=== PATIENT | male | born 1940 | race Caucasian/White ===

== ENCOUNTER → 2016-08-02 | Outpatient (REF) | payer MEDICARE ==
[~2016-08-02] MED LIST: ALPR0.25 PO; ASPI81TA11 PO; ATEN25TA PO; BAYE325T12 PO; CRES10TA32 PO; CYAN1000VL IM; IBUP200C PO; LISI-538 PO; NITR4TASL SL; OMEP40CA2 PO; PLAV75TA38 PO; RANI150T PO; TAMS0.4C2 PO
[2016-08-02 12:43] LABS: BASO % 0.8 % (0.0-1.0); EOS # 0.4 K/mm3 (0.0-0.50); EOS % 6.5 % (0.0-3.0); LARGE UNSTAINED CELL # 0.1 K/mm3 (0.0-0.4); LARGE UNSTAINED CELL % 2.3 % (0.0-4.0); LYMPH # 1.4 K/mm3 (1.5-4.5); LYMPH % 25.8 % (24.0-44.0); MEAN CORPUSCULAR HEMOGLOBIN 30.5 pg (27.0-33.0); MEAN CORPUSCULAR VOLUME 89.7 fl (80.0-96.0); MONO # 0.4 K/mm3 (0.0-0.8); MONO % 6.9 % (0.0-5.0); NEUTROPHILS # 3.1 K/mm3 (1.8-7.7); NEUTROPHILS % 57.6 % (36.0-66.0); PLATELET COUNT, AUTOMATED 211 k/mm3 (150-450); RED CELL DISTRIBUTION WIDTH 13.7 % (11.5-14.5); WHITE BLOOD COUNT 5.4 K/mm3 (4.0-10.0)
[2016-08-02 12:55] LABS: VITAMIN B12 LEVEL 440 PG/ML (247-911)
[2016-08-02 13:27] LABS: ALBUMIN 3.7 GM/DL (3.2-5.2); ALBUMIN/GLOBULIN RATIO 1.16 (1.00-1.93); ALKALINE PHOSPHATASE 67 U/L (45-117); ALT/SGPT 19 U/L (12-78); ANION GAP 8 MEQ/L (8-16); AST/SGOT 17 U/L (15-37); BILIRUBIN,TOTAL 0.3 MG/DL (0.2-1.0); BLOOD UREA NITROGEN 19 MG/DL (7-18); CALCIUM LEVEL 8.7 MG/DL (8.8-10.2); CARBON DIOXIDE LEVEL 29 MEQ/L (21-32); CHLORIDE LEVEL 105 MEQ/L (98-107); CHOLESTEROL LEVEL 139 MG/DL (<200); CREATININE FOR GFR 1.06 MG/DL (0.70-1.30); GLOMERULAR FILTRATION RATE > 60.0 (>42); GLUCOSE, FASTING 117 MG/DL (83-110); POTASSIUM SERUM 4.5 MEQ/L (3.5-5.1); SODIUM LEVEL 142 MEQ/L (136-145); TOTAL PROTEIN 6.9 GM/DL (6.4-8.2); TRIGLYCERIDES LEVEL 159 MG/DL (<150)
[2016-08-03 14:16] LABS: PSA TOTAL 0.5 ng/mL (0.0-4.0)
== END ==
LOC: M LABDRAW1 11:58
PROVIDERS: ATTEND Nurse Practitioner Family
DX: I25.10 Atherosclerotic heart disease of native coronary artery without angina pectoris (principal); N40.0 Benign prostatic hyperplasia without lower urinary tract symptoms; D51.9 Vitamin B12 deficiency anemia, unspecified; E78.4 Other hyperlipidemia; I10 Essential (primary) hypertension

== ENCOUNTER → 2016-10-17 | Outpatient (REF) | payer MEDICARE ==
[~2016-10-17] MED LIST changes: +ASPI-101 PO; -ASPI81TA11 PO; +ESOM1CAP5; +FLOM5CAP; +FLUT1SPR2; -IBUP200C PO; +IBUP200C10 PO; +ISOS30TA4; +PLAV1TAB2 PO; -PLAV75TA38 PO; +PROAAER10; +ROSU40TA
== END ==
LOC: M LABDRAW1 17:40
PROVIDERS: ATTEND Nurse Practitioner Family
DX: I25.10 Atherosclerotic heart disease of native coronary artery without angina pectoris (principal)

== ENCOUNTER → 2016-10-23 | Outpatient (REF) | payer MEDICARE ==
[2016-10-23 12:04] LABS: ANION GAP 7 MEQ/L (8-16); BLOOD UREA NITROGEN 21 MG/DL (7-18); CARBON DIOXIDE LEVEL 28 MEQ/L (21-32); CHLORIDE LEVEL 106 MEQ/L (98-107); CREATININE FOR GFR 1.14 MG/DL (0.70-1.30); GLOMERULAR FILTRATION RATE > 60.0 (>42); GLUCOSE, FASTING 177 MG/DL (83-110); SODIUM LEVEL 141 MEQ/L (136-145)
== END ==
LOC: M LABDRAW1 11:24
PROVIDERS: ATTEND Nurse Practitioner Family
DX: I10 Essential (primary) hypertension (principal)

== ENCOUNTER 2016-11-05 00:11 | Emergency (ER) | payer MEDICARE ==
[~2016-11-05] VITALS: Ht 165.1 cm; Wt 64.2 kg
[~2016-11-05 00:11] MED LIST changes: -ESOM1CAP5; -FLOM5CAP; -FLUT1SPR2; -ISOS30TA4; -PROAAER10; -ROSU40TA
[2016-11-05] MEDS ORDERED: FLUT1SPR2 (00:31)
[2016-11-05] MEDS ORDERED: ROSU40TA (00:31)
[2016-11-05] MEDS ORDERED: PROAAER10 (00:31)
[2016-11-05] MEDS ORDERED: FLOM5CAP (00:31)
[2016-11-05] MEDS ORDERED: ESOM1CAP5 (00:31)
[2016-11-05] MEDS ORDERED: ISOS30TA4 (00:31)
[2016-11-05] MEDS ORDERED: ASPIRIN 81 MG CHEW TABLET PO ONE (00:45)
[2016-11-05 00:58] LABS: BASO # 0.1 K/mm3 (0.0-0.2); BASO % 0.9 % (0.0-1.0); EOS # 0.3 K/mm3 (0.0-0.50); LARGE UNSTAINED CELL # 0.1 K/mm3 (0.0-0.4); LARGE UNSTAINED CELL % 2.1 % (0.0-4.0); LYMPH # 2.1 K/mm3 (1.5-4.5); LYMPH % 28.8 % (24.0-44.0); MEAN CORPUSCULAR HEMOGLOBIN 29.3 pg (27.0-33.0); MEAN CORPUSCULAR HGB CONC 33.7 g/dl (32.0-36.5); MEAN CORPUSCULAR VOLUME 87.1 fl (80.0-96.0); MONO # 0.5 K/mm3 (0.0-0.8); MONO % 7.6 % (0.0-5.0); NEUTROPHILS # 3.8 K/mm3 (1.8-7.7); NEUTROPHILS % 55.5 % (36.0-66.0); PLATELET COUNT, AUTOMATED 188 k/mm3 (150-450); RED CELL DISTRIBUTION WIDTH 13.2 % (11.5-14.5); WHITE BLOOD COUNT 6.8 K/mm3 (4.0-10.0)
[2016-11-05 01:07] LABS: ALBUMIN 3.6 GM/DL (3.2-5.2); ALBUMIN/GLOBULIN RATIO 0.97 (1.00-1.93); ALKALINE PHOSPHATASE 77 U/L (45-117); ALT/SGPT 24 U/L (12-78); ANION GAP 5 MEQ/L (8-16); AST/SGOT 15 U/L (15-37); BILIRUBIN,DIRECT < 0.1 MG/DL (0.0-0.2); BILIRUBIN,TOTAL 0.2 MG/DL (0.2-1.0); BLOOD UREA NITROGEN 19 MG/DL (7-18); CALCIUM LEVEL 8.8 MG/DL (8.8-10.2); CARBON DIOXIDE LEVEL 29 MEQ/L (21-32); CHLORIDE LEVEL 106 MEQ/L (98-107); CREATININE FOR GFR 1.12 MG/DL (0.70-1.30); GLOMERULAR FILTRATION RATE > 60.0 (>42); GLUCOSE, FASTING 144 MG/DL (83-110); POTASSIUM SERUM 4.1 MEQ/L (3.5-5.1); SODIUM LEVEL 140 MEQ/L (136-145); TOTAL PROTEIN 7.3 GM/DL (6.4-8.2)
--- NOTE | 2016-11-05 06:14 | ECGEPIP ---
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
[2016-11-05] MEDS ORDERED: FAMOTIDINE 20 MG TAB PO ONE (07:45)
[2016-11-05] MEDS ORDERED: HEPARIN SOD (PORCINE) 5000 UNITS/ML VIAL IV ONE (08:00)
[2016-11-05] MEDS ORDERED: CLOPIDOGREL 300 MG TAB (PLAVIX) PO ONE (08:00)
[2016-11-05] MEDS ORDERED: HEPARIN DRIP 25,000 UNITS in APPROPRIATE DILUENT 1 EA IV SCH (08:00)
[2016-11-05 08:18] LABS: INR 0.98
[2016-11-05] MEDS ORDERED: NITROGLYCERIN 0.4 MG SUBL TABLET SL PRN (08:30)
[2016-11-05 08:37] VITALS: BP 177/90
[2016-11-05] MEDS ORDERED: NITROGLYCERIN 2% OINT 1 GM *U/D* PKT TOP ONE (08:45)
[2016-11-05 08:57] VITALS: BP 155/73
--- NOTE | 2016-11-05 09:12 | REP ---
Portable chest: 11/05/2016. Comparison 10/17/2016, 07/07/2011, CT chest 10/26/2016. Clinical history: Chest pain. There is some elevation right diaphragm as before. Bilateral pleural plaques are noted as on previous chest x-ray and CT. Heart has a somewhat left ventricular configuration. There is no vascular redistribution or edema. The aorta is calcified at the arch, minimally tortuous without aneurysm. Airway intact. Bones demineralized. Impression: 1. Elevated right diaphragm with some minor basilar atelectatic change and bilateral calcified pleural plaques from prior asbestos exposure. 2. No gross cardiomegaly or edema. No dense consolidation. Signed by Clifford Jason MD 11/05/2016 09:15 P
--- NOTE | 2016-11-05 18:19 | ECGEPIP ---
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
--- NOTE | 2016-11-05 18:20 | ECGEPIP ---
Stationary ECG Study 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
--- NOTE | 2016-11-06 07:43 | ED PDOC ---
Post-Departure Follow-Up radiology report faxed to Negrita Mejia MD Nov 06, 2016 07:43
== END 2016-11-05 09:05 | disposition short-term general hospital (02) ==
LOC: EDBD 00:11 → M ED 00:11
DX: I20.0 Unstable angina (principal); I25.10 Atherosclerotic heart disease of native coronary artery without angina pectoris; I10 Essential (primary) hypertension; E78.5 Hyperlipidemia, unspecified; Z95.5 Presence of coronary angioplasty implant and graft; Z77.090 Contact with and (suspected) exposure to asbestos; Z79.82 Long term (current) use of aspirin; Z79.899 Other long term (current) drug therapy

== ENCOUNTER → 2017-11-18 | Outpatient (REF) | payer MEDICARE ==
[2017-11-18 12:02] LABS: BASO # 0.1 10^3/uL (0.0-0.2); BASO % 0.9 % (0.0-1.0); EOS # 0.4 10^3/uL (0.0-0.50); EOS % 6.8 % (0.0-3.0); HEMOGLOBIN 14.1 g/dl (13.5-17.5); IMMATURE GRANULOCYTE % 0.4 % (0-3.0); LYMPH # 1.6 10^3/uL (1.5-4.5); MEAN CORPUSCULAR HEMOGLOBIN 29.6 pg (27.0-33.0); MEAN CORPUSCULAR HGB CONC 33.6 g/dl (32.0-36.5); MEAN CORPUSCULAR VOLUME 88.2 fl (80.0-96.0); MONO # 0.5 10^3/uL (0.0-0.8); MONO % 9.2 % (0.0-5.0); NEUTROPHILS # 2.9 10^3/uL (1.8-7.7); NEUTROPHILS % 53.7 % (36.0-66.0); PLATELET COUNT, AUTOMATED 194 10^3/uL (150-450); RED BLOOD COUNT 4.76 10^6/uL (4.30-6.10); RED CELL DISTRIBUTION WIDTH 12.8 % (11.5-14.5); WHITE BLOOD COUNT 5.4 10^3/uL (4.0-10.0)
[2017-11-18 12:31] LABS: ALBUMIN 3.7 GM/DL (3.2-5.2); ALBUMIN/GLOBULIN RATIO 1.16 (1.00-1.93); ALKALINE PHOSPHATASE 73 U/L (45-117); ALT/SGPT 23 U/L (12-78); ANION GAP 6 MEQ/L (8-16); AST/SGOT 16 U/L (7-37); BILIRUBIN,TOTAL 0.3 MG/DL (0.2-1.0); BLOOD UREA NITROGEN 15 MG/DL (7-18); CARBON DIOXIDE LEVEL 31 MEQ/L (21-32); CHLORIDE LEVEL 106 MEQ/L (98-107); CHOLESTEROL LEVEL 121 MG/DL (<200); CHOLESTEROL RISK RATIO 3.361 (<5); CREATININE FOR GFR 1.13 MG/DL (0.70-1.30); GLOMERULAR FILTRATION RATE > 60.0 (>42); GLUCOSE, FASTING 112 MG/DL (70-100); HDL CHOLESTEROL 36 MG/DL (>40); LDL CHOLESTEROL 67.6 MG/DL (<100); NON-HDL-C 85 MG/DL; SODIUM LEVEL 143 MEQ/L (136-145); TOTAL PROTEIN 6.9 GM/DL (6.4-8.2); TRIGLYCERIDES LEVEL 87 MG/DL (<150)
[2017-11-19 14:28] LABS: PSA TOTAL 0.7 ng/mL (0.0-4.0)
== END ==
LOC: M LABDRAW1 07:50
DX: K21.9 Gastro-esophageal reflux disease without esophagitis (principal); N40.0 Benign prostatic hyperplasia without lower urinary tract symptoms; I10 Essential (primary) hypertension
CPT/HCPCS: 80053

== ENCOUNTER → 2018-08-13 | Outpatient (REF) | payer MEDICARE ==
[~2018-08-13] MED LIST changes: -ASPI-101 PO; +ASPI-225 PO; +CRES10TA PO; -CRES10TA32 PO; +ESOM1CAP5; +FLOM0.4C39; +FLUT1SPR2; -IBUP200C10 PO; +IBUP200C25 PO; +ISOS30TA4; +PROAAER10; +ROSU40TA3
[2018-08-13 12:14] LABS: HEMATOCRIT 40.2 % (42.0-52.0); HEMOGLOBIN 13.5 g/dl (13.5-17.5); MEAN CORPUSCULAR HEMOGLOBIN 29.5 pg (27.0-33.0); MEAN CORPUSCULAR HGB CONC 33.6 g/dl (32.0-36.5); MEAN CORPUSCULAR VOLUME 87.8 fl (80.0-96.0); PLATELET COUNT, AUTOMATED 210 10^3/uL (150-450); RED BLOOD COUNT 4.58 10^6/uL (4.30-6.10); WHITE BLOOD COUNT 6.4 10^3/uL (4.0-10.0)
[2018-08-13 12:35] LABS: BLOOD UREA NITROGEN 18 MG/DL (7-18); CALCIUM LEVEL 9.1 MG/DL (8.8-10.2); CARBON DIOXIDE LEVEL 31 MEQ/L (21-32); CHLORIDE LEVEL 105 MEQ/L (98-107); CREATININE FOR GFR 1.17 MG/DL (0.70-1.30); GLOMERULAR FILTRATION RATE > 60.0 (>42); GLUCOSE, FASTING 121 MG/DL (70-100); POTASSIUM SERUM 4.1 MEQ/L (3.5-5.1); SODIUM LEVEL 139 MEQ/L (136-145)
== END ==
LOC: M LABDRAW1 11:46
PROVIDERS: ATTEND Physician Assistant
DX: I95.89 Other hypotension (principal)

== ENCOUNTER 2018-10-02 10:12 | Emergency (ER) | payer MEDICARE ==
[~2018-10-02] VITALS: Ht 167.6 cm; Wt 59.1 kg
[~2018-10-02 10:12] MED LIST changes: -ROSU40TA3; +ROSU40TA4 PO
[2018-10-02] MEDS ORDERED: CLOP75TA2 (10:20)
[2018-10-02 10:45] LABS: BASO % 0.4 % (0.0-1.0); EOS # 0.1 10^3/uL (0.0-0.50); EOS % 2.4 % (0.0-3.0); HEMATOCRIT 43.2 % (42.0-52.0); HEMOGLOBIN 14.7 g/dl (13.5-17.5); LYMPH # 1.3 10^3/uL (1.5-4.5); LYMPH % 25.9 % (24.0-44.0); MEAN CORPUSCULAR HEMOGLOBIN 30.4 pg (27.0-33.0); MEAN CORPUSCULAR VOLUME 89.3 fl (80.0-96.0); MONO # 0.4 10^3/uL (0.0-0.8); MONO % 8.8 % (0.0-5.0); NEUTROPHILS # 3.1 10^3/uL (1.8-7.7); NEUTROPHILS % 62.3 % (36.0-66.0); PLATELET COUNT, AUTOMATED 190 10^3/uL (150-450); RED BLOOD COUNT 4.84 10^6/uL (4.30-6.10)
[2018-10-02 10:54] LABS: INR 1.06; PROTHROMBIN TIME 13.5 SECONDS (11.8-14.0)
--- NOTE | 2018-10-02 11:04 | REP ---
Clinical: Acute chest pain. Comparison: 11/05/2016. Findings: Mediastinum and cardiac silhouette are normal. Lung david demonstrate coarsened interstitial markings which are likely chronic. No obvious focal consolidation, effusion, or pneumothorax. Skeletal structures intact. Impression: Chronic-appearing changes. No obvious focal consolidation or effusion. Electronically Signed by Randall Randall MD 10/02/2018 10:55 A
[2018-10-02] MEDS ORDERED: ENAL2.5T PO (11:23)
[2018-10-02] MEDS ORDERED: TERA10CA3 PO (11:23)
[2018-10-02 11:24] LABS: ALBUMIN 3.5 GM/DL (3.2-5.2); ALT/SGPT 23 U/L (12-78); BILIRUBIN,DIRECT 0.1 MG/DL (0.0-0.2); BILIRUBIN,TOTAL 0.3 MG/DL (0.2-1.0); BLOOD UREA NITROGEN 19 MG/DL (7-18); CALCIUM LEVEL 8.4 MG/DL (8.8-10.2); CARBON DIOXIDE LEVEL 28 MEQ/L (21-32); CHLORIDE LEVEL 107 MEQ/L (98-107); CK-MB VALUE MASS < 1.0 NG/ML (<3.6); CPK CREATINE PHOSPHOKINASE 61 U/L (39-308); CREATININE FOR GFR 1.07 MG/DL (0.70-1.30); GLOMERULAR FILTRATION RATE > 60.0 (>42); GLUCOSE, FASTING 144 MG/DL (70-100); LIPASE 76 U/L (73-393); MB/CK RELATIVE INDEX 1.64 (< OR =4); NT-PRO BNP < 5 PG/ML (<450); POTASSIUM SERUM 4.2 MEQ/L (3.5-5.1); SODIUM LEVEL 140 MEQ/L (136-145); THYROID STIMULATING HORMONE 0.612 uIU/ML (0.358-3.740); TOTAL PROTEIN 7.2 GM/DL (6.4-8.2); TROPONIN I < 0.02 NG/ML (< 0.10)
[2018-10-02 13:09] LABS: CK-MB VALUE MASS < 1.0 NG/ML (<3.6); CPK CREATINE PHOSPHOKINASE 67 U/L (39-308); MB/CK RELATIVE INDEX 1.49 (< OR =4); TROPONIN I < 0.02 NG/ML (< 0.10)
[2018-10-02 17:45] LABS: CK-MB VALUE MASS 1.1 NG/ML (<3.6); CPK CREATINE PHOSPHOKINASE 61 U/L (39-308); TROPONIN I < 0.02 NG/ML (< 0.10)
[2018-10-02 18:15] VITALS: BP 151/75
--- NOTE | 2018-10-02 20:09 | ECGEPIP ---
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
== END 2018-10-02 18:15 | disposition home or self-care (01) ==
LOC: M ED 10:12
DX: R07.9 Chest pain, unspecified (principal); R06.02 Shortness of breath; I10 Essential (primary) hypertension; J44.9 Chronic obstructive pulmonary disease, unspecified; E78.5 Hyperlipidemia, unspecified; I25.2 Old myocardial infarction; Z79.899 Other long term (current) drug therapy; Z79.82 Long term (current) use of aspirin; Z79.01 Long term (current) use of anticoagulants; Z88.5 Allergy status to narcotic agent; Z88.8 Allergy status to other drugs, medicaments and biological substances; Z87.891 Personal history of nicotine dependence

== ENCOUNTER → 2019-09-23 | Outpatient (REF) | payer BC ==
[~2019-09-23] MED LIST changes: -ASPI-225 PO; +ASPI81TA78 PO; +CLOP75TA2; +ENAL2.5T PO; -OMEP40CA2 PO; +OMEP40CA97 PO; +TERA10CA3 PO
[2019-09-23 13:12] LABS: BASO % 0.5 % (0.0-1.0); EOS # 0.3 10^3/uL (0.0-0.5); EOS % 3.6 % (0.0-3.0); HEMATOCRIT 39.1 % (42.0-52.0); HEMOGLOBIN 13.1 g/dl (13.5-17.5); LYMPH # 1.7 10^3/uL (1.5-5.0); LYMPH % 20.8 % (24.0-44.0); MEAN CORPUSCULAR HEMOGLOBIN 29.7 pg (27.0-33.0); MEAN CORPUSCULAR HGB CONC 33.5 g/dl (32.0-36.5); MEAN CORPUSCULAR VOLUME 88.7 fl (80.0-96.0); MONO # 0.7 10^3/uL (0.0-0.8); MONO % 8.1 % (0.0-5.0); NEUTROPHILS # 5.3 10^3/uL (1.5-8.5); NEUTROPHILS % 66.6 % (36.0-66.0); PLATELET COUNT, AUTOMATED 297 10^3/uL (150-450); RED BLOOD COUNT 4.41 10^6/uL (4.30-6.10)
[2019-09-23 13:34] LABS: HEMOGLOBIN A1c 6.8 %
[2019-09-23 13:59] LABS: ALBUMIN 3.4 GM/DL (3.2-5.2); ALT/SGPT 22 U/L (12-78); BILIRUBIN,TOTAL 0.4 MG/DL (0.2-1.0); BLOOD UREA NITROGEN 20 MG/DL (7-18); CALCIUM LEVEL 9.1 MG/DL (8.8-10.2); CARBON DIOXIDE LEVEL 27 MEQ/L (21-32); CHLORIDE LEVEL 104 MEQ/L (98-107); CHOLESTEROL LEVEL 118 MG/DL (<200); CHOLESTEROL RISK RATIO 3.687 (<5); CREATININE FOR GFR 1.14 MG/DL (0.70-1.30); GLOMERULAR FILTRATION RATE > 60.0 (>42); GLUCOSE, FASTING 116 MG/DL (70-100); HDL CHOLESTEROL 32 MG/DL (>40); LDL CHOLESTEROL 69 MG/DL (<100); NON-HDL-C 86 MG/DL; POTASSIUM SERUM 4.7 MEQ/L (3.5-5.1); SODIUM LEVEL 138 MEQ/L (136-145); THYROID STIMULATING HORMONE 0.346 uIU/ML (0.358-3.740); TOTAL PROTEIN 7.3 GM/DL (6.4-8.2); TRIGLYCERIDES LEVEL 85 MG/DL (<150)
== END ==
LOC: M SFHCADAM 09:06
PROVIDERS: ATTEND Physician Assistant Medical
DX: E78.2 Mixed hyperlipidemia (principal); K21.9 Gastro-esophageal reflux disease without esophagitis; I50.32 Chronic diastolic (congestive) heart failure; I71.4 Abdominal aortic aneurysm, without rupture; I65.23 Occlusion and stenosis of bilateral carotid arteries; N40.0 Benign prostatic hyperplasia without lower urinary tract symptoms
CPT/HCPCS: 80053; 80061; 83036; 84443; 85025; G0103

== ENCOUNTER → 2021-01-30 | Outpatient (REF) | payer BC, MEDICARE ==
[~2021-01-30] MED LIST changes: +ENAL1TAB46 PO; -ENAL2.5T PO; +ISOS1TAB35; -ISOS30TA4; -LISI-538 PO; +LISI20TA33 PO; +OMEP40CA4 PO; -OMEP40CA97 PO
[2021-01-30 12:39] LABS: BASO % 0.3 % (0.0-1.0); EOS # 0.1 10^3/uL (0.0-0.5); EOS % 1.5 % (0.0-3.0); HEMATOCRIT 39.5 % (42.0-52.0); HEMOGLOBIN 12.7 g/dl (13.5-17.5); LYMPH # 1.3 10^3/uL (1.5-5.0); LYMPH % 17.5 % (24.0-44.0); MEAN CORPUSCULAR HEMOGLOBIN 28.1 pg (27.0-33.0); MEAN CORPUSCULAR HGB CONC 32.2 g/dl (32.0-36.5); MEAN CORPUSCULAR VOLUME 87.4 fl (80.0-96.0); MONO # 0.7 10^3/uL (0.0-0.8); MONO % 9.4 % (2.0-8.0); NEUTROPHILS # 5.1 10^3/uL (1.5-8.5); PLATELET COUNT, AUTOMATED 320 10^3/uL (150-450); RED BLOOD COUNT 4.52 10^6/uL (4.30-6.10); WHITE BLOOD COUNT 7.2 10^3/uL (4.0-10.0)
[2021-01-30 14:18] LABS: ALBUMIN 3.2 GM/DL (3.2-5.2); ALT/SGPT 15 U/L (12-78); BILIRUBIN,TOTAL 0.3 MG/DL (0.2-1.0); BLOOD UREA NITROGEN 18 MG/DL (7-18); CALCIUM LEVEL 9.4 MG/DL (8.8-10.2); CARBON DIOXIDE LEVEL 29 MEQ/L (21-32); CHLORIDE LEVEL 104 MEQ/L (98-107); CREATININE FOR GFR 0.85 MG/DL (0.70-1.30); FERRITIN 166 NG/ML (26-388); FREE T4 1.36 NG/DL (0.76-1.46); GLOMERULAR FILTRATION RATE > 60.0 (>35); GLUCOSE, FASTING 97 MG/DL (70-100); IRON (FE) 45 UG/DL (65-175); MAGNESIUM LEVEL 2.3 MG/DL (1.8-2.4); PERCENT SATURATION 17.8 % (19.7-50.0); POTASSIUM SERUM 4.7 MEQ/L (3.5-5.1); SODIUM LEVEL 139 MEQ/L (136-145); THYROID STIMULATING HORMONE 0.269 uIU/ML (0.358-3.740); TOTAL IRON BINDING CAPACITY 253 UG/DL (250-450); TOTAL PROTEIN 7.5 GM/DL (6.4-8.2)
[2021-01-30 14:32] LABS: VITAMIN B12 LEVEL 514 PG/ML
== END ==
LOC: M SFHCADAM 10:22
PROVIDERS: ATTEND Physician Assistant Medical
DX: I25.10 Atherosclerotic heart disease of native coronary artery without angina pectoris (principal); E78.2 Mixed hyperlipidemia; K21.9 Gastro-esophageal reflux disease without esophagitis; I50.32 Chronic diastolic (congestive) heart failure

== ENCOUNTER → 2021-08-09 | Outpatient (REF) | payer BC, MEDICARE ==
[2021-08-09 17:04] LABS: HEMATOCRIT 37.2 % (42.0-52.0); HEMOGLOBIN 11.7 g/dl (13.5-17.5); MEAN CORPUSCULAR HEMOGLOBIN 28.5 pg (27.0-33.0); MEAN CORPUSCULAR HGB CONC 31.5 g/dl (32.0-36.5); MEAN CORPUSCULAR VOLUME 90.7 fl (80.0-96.0); PLATELET COUNT, AUTOMATED 286 10^3/uL (150-450); WHITE BLOOD COUNT 6.1 10^3/uL (4.0-10.0)
[2021-08-09 20:17] LABS: ALBUMIN 3.2 GM/DL (3.2-5.2); ALT/SGPT 17 U/L (12-78); BILIRUBIN,TOTAL 0.2 MG/DL (0.2-1.0); BLOOD UREA NITROGEN 17 MG/DL (7-18); C REACTIVE PROTEIN QUANTITATIV 0.71 MG/DL (0.00-0.30); CALCIUM LEVEL 9.5 MG/DL (8.8-10.2); CARBON DIOXIDE LEVEL 32 MEQ/L (21-32); CHLORIDE LEVEL 104 MEQ/L (98-107); CHOLESTEROL LEVEL 129 MG/DL (<200); CHOLESTEROL RISK RATIO 3.146 (<5); CREATININE FOR GFR 0.74 MG/DL (0.70-1.30); GLOMERULAR FILTRATION RATE > 60.0 (>35); GLUCOSE, FASTING 162 MG/DL (70-100); HDL CHOLESTEROL 41 MG/DL (>40); LDL CHOLESTEROL 69 MG/DL (<100); NON-HDL-C 88 MG/DL; NT-PRO BNP 11 PG/ML (<450); POTASSIUM SERUM 4.5 MEQ/L (3.5-5.1); SODIUM LEVEL 139 MEQ/L (136-145); THYROID STIMULATING HORMONE 0.689 uIU/ML (0.358-3.740); TOTAL PROTEIN 7.3 GM/DL (6.4-8.2); TRIGLYCERIDES LEVEL 95 MG/DL (<150)
[2021-08-11 08:22] LABS: ALBUMIN 3.53 GM/DL (3.29-5.55); ALBUMIN % 48.3 % (55.8-66.1); ALPHA-1-GLOBULIN % 5.1 % (2.9-4.9); ALPHA-1-GLOBULINS 0.37 GM/DL (0.17-0.41); ALPHA-2-GLOBULINS 1.08 GM/DL (0.42-0.99); ALPHA-2-GLOBULINS % 14.8 % (7.1-11.8); BETA-1-GLOBULINS 0.42 GM/DL (0.28-0.60); BETA-1-GLOBULINS % 5.8 % (4.7-7.2); BETA-2-GLOBULINS % 6.2 % (3.2-6.5); GAMMA GLOBULIN % 19.8 % (11.1-18.8)
[2021-08-11 08:23] LABS: BETA-2-GLOBULINS 0.45 GM/DL (0.19-0.55); GAMMA GLOBULINS 1.45 GM/DL (0.65-1.58)
[2021-08-11 18:09] LABS: FREE KAPPA LIGHT CHAINS SERUM 49.9 mg/L (3.3-19.4); FREE LAMBDA LIGHT CHAINS SERUM 26.7 mg/L (5.7-26.3); KAPPA/LAMBDA RATIO SERUM 1.87 (0.26-1.65)
== END ==
LOC: M SFHCADAM 14:57
PROVIDERS: ATTEND Family Medicine
DX: R63.4 Abnormal weight loss (principal); E53.8 Deficiency of other specified B group vitamins; I25.10 Atherosclerotic heart disease of native coronary artery without angina pectoris; F41.9 Anxiety disorder, unspecified; I50.32 Chronic diastolic (congestive) heart failure; S22.009A Unspecified fracture of unspecified thoracic vertebra, initial encounter for closed fracture; R97.20 Elevated prostate specific antigen [PSA]; W18.30XA Fall on same level, unspecified, initial encounter; Y92.009 Unspecified place in unspecified non-institutional (private) residence as the place of occurrence of the external cause

== ENCOUNTER → 2021-08-09 | Outpatient (CLI) | payer BC, MEDICARE | LOC: M ADAMS 15:03 | PROVIDERS: ATTEND Family Medicine | DX: R63.4 Abnormal weight loss (principal); S22.009A Unspecified fracture of unspecified thoracic vertebra, initial encounter for closed fracture; J90 Pleural effusion, not elsewhere classified; X58.XXXA Exposure to other specified factors, initial encounter; Y92.9 Unspecified place or not applicable; M85.88 Other specified disorders of bone density and structure, other site ==

== ENCOUNTER → 2021-08-31 | Outpatient (REF) | payer MEDICARE ==
[2021-08-31 12:56] LABS: HEMATOCRIT 39.4 % (42.0-52.0); HEMOGLOBIN 12.5 g/dl (13.5-17.5); MEAN CORPUSCULAR HEMOGLOBIN 28.4 pg (27.0-33.0); MEAN CORPUSCULAR HGB CONC 31.7 g/dl (32.0-36.5); MEAN CORPUSCULAR VOLUME 89.5 fl (80.0-96.0); PLATELET COUNT, AUTOMATED 276 10^3/uL (150-450)
[2021-08-31 13:26] LABS: ALBUMIN 3.3 GM/DL (3.2-5.2); ALT/SGPT 14 U/L (12-78); BILIRUBIN,TOTAL 0.3 MG/DL (0.2-1.0); BLOOD UREA NITROGEN 19 MG/DL (7-18); CARBON DIOXIDE LEVEL 32 MEQ/L (21-32); CHLORIDE LEVEL 104 MEQ/L (98-107); CREATININE FOR GFR 0.83 MG/DL (0.70-1.30); FERRITIN 158 NG/ML (26-388); GLOMERULAR FILTRATION RATE > 60.0 (>35); GLUCOSE, FASTING 119 MG/DL (70-100); IRON (FE) 46 UG/DL (65-175); PERCENT SATURATION 18.9 % (19.7-50.0); POTASSIUM SERUM 4.3 MEQ/L (3.5-5.1); SODIUM LEVEL 141 MEQ/L (136-145); TOTAL IRON BINDING CAPACITY 244 UG/DL (250-450); TOTAL PROTEIN 7.7 GM/DL (6.4-8.2)
== END ==
LOC: M SFHCADAM 08:08
PROVIDERS: ATTEND Family Medicine
DX: D64.9 Anemia, unspecified (principal); I50.32 Chronic diastolic (congestive) heart failure

== ENCOUNTER → 2021-09-05 | Outpatient (CLI) | payer MEDICARE ==
[~2021-09-05] MED LIST changes: +ISOVUE-370 76% 100ML VIAL As Ordered ONE
== END ==
LOC: M RAD 08:33
PROVIDERS: ATTEND Family Medicine
DX: J90 Pleural effusion, not elsewhere classified (principal); J94.8 Other specified pleural conditions; J98.11 Atelectasis; J84.10 Pulmonary fibrosis, unspecified
CPT/HCPCS: 71260; Q9967

== ENCOUNTER → 2021-10-04 | Outpatient (REF) | payer MEDICARE ==
[~2021-10-04] MED LIST changes: -ISOVUE-370 76% 100ML VIAL As Ordered ONE
[2021-10-04 16:40] LABS: HEMOGLOBIN 12.9 g/dl (13.5-17.5); MEAN CORPUSCULAR HEMOGLOBIN 28.9 pg (27.0-33.0); MEAN CORPUSCULAR HGB CONC 32.3 g/dl (32.0-36.5); MEAN CORPUSCULAR VOLUME 89.5 fl (80.0-96.0); PLATELET COUNT, AUTOMATED 268 10^3/uL (150-450); RED BLOOD COUNT 4.47 10^6/uL (4.30-6.10); WHITE BLOOD COUNT 6.6 10^3/uL (4.0-10.0)
[2021-10-04 17:09] LABS: BLOOD UREA NITROGEN 16 MG/DL (7-18); CALCIUM LEVEL 9.1 MG/DL (8.8-10.2); CARBON DIOXIDE LEVEL 33 MEQ/L (21-32); CHLORIDE LEVEL 102 MEQ/L (98-107); CREATININE FOR GFR 0.91 MG/DL (0.70-1.30); GLOMERULAR FILTRATION RATE > 60.0 (>35); GLUCOSE, FASTING 96 MG/DL (70-100); POTASSIUM SERUM 4.9 MEQ/L (3.5-5.1); SODIUM LEVEL 139 MEQ/L (136-145)
== END ==
LOC: M SFHCADAM 13:52
PROVIDERS: ATTEND Family Medicine
DX: I50.32 Chronic diastolic (congestive) heart failure (principal); D63.8 Anemia in other chronic diseases classified elsewhere

== ENCOUNTER → 2022-01-02 | Outpatient (REF) | payer MEDICARE ==
[2022-01-02 13:34] LABS: HEMATOCRIT 39.2 % (42.0-52.0); HEMOGLOBIN 12.2 g/dl (13.5-17.5); MEAN CORPUSCULAR HEMOGLOBIN 27.9 pg (27.0-33.0); MEAN CORPUSCULAR HGB CONC 31.1 g/dl (32.0-36.5); MEAN CORPUSCULAR VOLUME 89.5 fl (80.0-96.0); PLATELET COUNT, AUTOMATED 282 10^3/uL (150-450); RED BLOOD COUNT 4.38 10^6/uL (4.30-6.10); WHITE BLOOD COUNT 7.3 10^3/uL (4.0-10.0)
[2022-01-02 13:49] LABS: ALBUMIN 3.2 GM/DL (3.2-5.2); ALT/SGPT 18 U/L (12-78); BILIRUBIN,TOTAL 0.3 MG/DL (0.2-1.0); BLOOD UREA NITROGEN 18 MG/DL (7-18); CALCIUM LEVEL 9.7 MG/DL (8.8-10.2); CARBON DIOXIDE LEVEL 33 MEQ/L (21-32); CHLORIDE LEVEL 104 MEQ/L (98-107); CREATININE FOR GFR 0.93 MG/DL (0.70-1.30); FERRITIN 129 NG/ML (26-388); GLOMERULAR FILTRATION RATE > 60.0 (>35); GLUCOSE, FASTING 120 MG/DL (70-100); IRON (FE) 49 UG/DL (65-175); PERCENT SATURATION 19.5 % (19.7-50.0); POTASSIUM SERUM 4.4 MEQ/L (3.5-5.1); SODIUM LEVEL 141 MEQ/L (136-145); TOTAL IRON BINDING CAPACITY 251 UG/DL (250-450); TOTAL PROTEIN 7.6 GM/DL (6.4-8.2)
== END ==
LOC: M SFHCADAM 07:49
PROVIDERS: ATTEND Family Medicine
DX: I50.32 Chronic diastolic (congestive) heart failure (principal); D63.8 Anemia in other chronic diseases classified elsewhere

== ENCOUNTER → 2022-08-08 | Outpatient (CLI) | payer MEDICARE ==
[~2022-08-08] MED LIST changes: +CLOP75TA99 PO; -PLAV1TAB2 PO
== END ==
LOC: M PLAIMG 08:11
PROVIDERS: ATTEND Internal Medicine Cardiovascular Disease
DX: R06.09 Other forms of dyspnea (principal); J84.89 Other specified interstitial pulmonary diseases; J94.8 Other specified pleural conditions; I70.0 Atherosclerosis of aorta; M51.34 Other intervertebral disc degeneration, thoracic region

== ENCOUNTER → 2022-09-05 | Outpatient (REF) | payer MEDICARE ==
[2022-09-05 14:45] LABS: HEMATOCRIT 40.9 % (42.0-52.0); HEMOGLOBIN 12.4 g/dl (13.5-17.5); MEAN CORPUSCULAR HEMOGLOBIN 27.4 pg (27.0-33.0); MEAN CORPUSCULAR HGB CONC 30.3 g/dl (32.0-36.5); MEAN CORPUSCULAR VOLUME 90.5 fl (80.0-96.0); PLATELET COUNT, AUTOMATED 256 10^3/uL (150-450); RED BLOOD COUNT 4.52 10^6/uL (4.30-6.10); WHITE BLOOD COUNT 7.4 10^3/uL (4.0-10.0)
[2022-09-05 14:47] LABS: TOTAL IRON BINDING CAPACITY 273 UG/DL (250-425)
[2022-09-05 14:48] LABS: ALBUMIN 3.4 G/DL (3.2-5.2); ALKALINE PHOSPHATASE 100 U/L (46-116); ALT/SGPT 12 U/L (7.0-40); AST/SGOT 16 U/L (<34); BILIRUBIN,TOTAL 0.2 MG/DL (0.3-1.2); BLOOD UREA NITROGEN 19 MG/DL (9-23); CALCIUM LEVEL 9.4 MG/DL (8.3-10.6); CARBON DIOXIDE LEVEL 31 MMOL/L (20-31); CHLORIDE LEVEL 102 MMOL/L (98-107); CHOLESTEROL LEVEL 122 MG/DL (<200); CHOLESTEROL RISK RATIO 3.23 (<5); CREATININE FOR GFR 0.87 MG/DL (0.70-1.30); GLOMERULAR FILTRATION RATE > 60.0 (>35); GLUCOSE, FASTING 81 MG/DL (74-106); HDL CHOLESTEROL 37.7 MG/DL (>40); IRON (FE) 48 UG/DL (65-175); LDL CHOLESTEROL 61.5 MG/DL (<100); NON-HDL-C 84.3 MG/DL; PERCENT SATURATION 17.6 % (19.7-50.0); POTASSIUM SERUM 4.5 MMOL/L (3.5-5.1); SODIUM LEVEL 139 MMOL/L (136-145); TOTAL PROTEIN 7.3 G/DL (5.7-8.2); TRIGLYCERIDES LEVEL 114 MG/DL (<150)
[2022-09-05 14:51] LABS: THYROID STIMULATING HORMONE 0.501 uIU/ML (0.55-4.78)
[2022-09-05 14:52] LABS: FERRITIN 86.4 NG/ML (10.5-307.3); FREE T4 1.13 NG/DL (0.89-1.76)
[2022-09-05 15:27] LABS: HEMOGLOBIN A1c 6.2 % (4.0-6.0)
== END ==
LOC: M SFHCADAM 09:00
PROVIDERS: ATTEND Family Medicine
DX: I25.10 Atherosclerotic heart disease of native coronary artery without angina pectoris (principal); D63.8 Anemia in other chronic diseases classified elsewhere; F41.9 Anxiety disorder, unspecified; R63.4 Abnormal weight loss; I50.32 Chronic diastolic (congestive) heart failure; J61 Pneumoconiosis due to asbestos and other mineral fibers; Z79.899 Other long term (current) drug therapy

== ENCOUNTER → 2022-09-19 | Outpatient (CLI) | payer MEDICARE | LOC: M RAD 10:15 | PROVIDERS: ATTEND Surgery Vascular Surgery | DX: I71.40 Abdominal aortic aneurysm, without rupture, unspecified (principal); I65.23 Occlusion and stenosis of bilateral carotid arteries ==

== ENCOUNTER → 2022-10-02 | Outpatient (CLI) | payer MEDICARE ==
[~2022-10-02] MED LIST changes: +ISOVUE-370 76% 100ML VIAL As Ordered ONE
== END ==
LOC: M RAD 10:49
PROVIDERS: ATTEND Family Medicine
DX: J61 Pneumoconiosis due to asbestos and other mineral fibers (principal)
CPT/HCPCS: 71260; Q9967

== ENCOUNTER → 2023-01-11 | Outpatient (CLI) | payer MEDICARE ==
[~2023-01-11] MED LIST changes: -ISOVUE-370 76% 100ML VIAL As Ordered ONE
[2023-01-11 10:28] LABS: BASO % 0.5 % (0.0-1.0); EOS # 0.2 10^3/uL (0.0-0.5); EOS % 2.2 % (0.0-3.0); HEMATOCRIT 41.4 % (42.0-52.0); LYMPH # 0.8 10^3/uL (1.5-5.0); LYMPH % 11.2 % (24.0-44.0); MEAN CORPUSCULAR HEMOGLOBIN 28.3 pg (27.0-33.0); MEAN CORPUSCULAR HGB CONC 31.4 g/dl (32.0-36.5); MONO # 0.4 10^3/uL (0.0-0.8); MONO % 5.7 % (2.0-8.0); NEUTROPHILS # 5.9 10^3/uL (1.5-8.5); NEUTROPHILS % 80.3 % (36.0-66.0); PLATELET COUNT, AUTOMATED 292 10^3/uL (150-450); WHITE BLOOD COUNT 7.4 10^3/uL (4.0-10.0)
[2023-01-11 10:46] LABS: INR 1.07; PROTHROMBIN TIME 13.6 SECONDS (12.5-14.5); TOTAL PROTEIN 7.7 G/DL (5.7-8.2)
[2023-01-11 10:48] LABS: PARTIAL THROMBOPLASTIN TIME 27.2 SECONDS (24.8-34.2)
== END ==
LOC: M LAB 09:11
PROVIDERS: ATTEND Internal Medicine Critical Care Medicine
DX: J90 Pleural effusion, not elsewhere classified (principal)

== ENCOUNTER → 2023-01-14 | Outpatient (CLI) | payer MEDICARE ==
[2023-01-14 12:11] VITALS: TEMP 97.8
[2023-01-14 13:33] LABS: PH BODY FLUID 7.101 UNITS (NOT ESTABLISHED); SOURCE, BODY FLUID pH PLEURAL
[2023-01-14 13:52] LABS: APPEARANCE, BODY FLUID TURBID (CLEAR); PLEURAL FL COLOR RED (COLORLESS); SOURCE, BODY FLUID PLEURAL
[2023-01-14 14:02] LABS: SOURCE, BODY FLUID ALBUMIN PLEURAL
[2023-01-14 14:07] LABS: SOURCE, BODY FLUID GLUCOSE PLEURAL
[2023-01-14 14:08] LABS: LDH, BODY FLUID 175 U/L (NOT ESTABLISHED); SOURCE, BODY FLUID LDH PLEURAL
[2023-01-14 14:09] LABS: AMYLASE, BODY FLUID < 20 U/L (NOT ESTABLISHED); SOURCE, BODY FLUID AMYLASE PLEURAL; SOURCE, BODY FLUID TOT PROTEIN PLEURAL; TOTAL PROTEIN, BODY FLUID 3.1 G/DL (NOT ESTABLISHED)
[2023-01-14 14:30] VITALS: BP 115/67; O2SAT 95
== END ==
LOC: M IRPRO 11:39
PROVIDERS: ATTEND Internal Medicine Critical Care Medicine
DX: J90 Pleural effusion, not elsewhere classified (principal)

== ENCOUNTER 2023-05-21 22:04 | Inpatient (IN) | payer MEDICARE ==
[~2023-05-21] VITALS: Ht 162.6 cm; Wt 47.3 kg
[~2023-05-21 22:04] MED LIST changes: -CLOP75TA2; +CLOP75TA2 PO
[2023-05-21] MEDS: NS 1,490 ML in IV 1 EA IV ONE (22:25)
[2023-05-21 23:08] LABS: VENOUS BASE EXCESS 8.4 (-2.0-2.0); VENOUS HCO3 34.3 MMOL/L (23.0-27.0); VENOUS O2 SATURATION 84.8 % (60.0-80.0); VENOUS PARTIAL PRESSURE CO2 54.6 mmHg (38.0-50.0); VENOUS PARTIAL PRESSURE O2 51.4 mmHg (30.0-50.0); VENOUS PH 7.416 UNITS (7.330-7.430)
[2023-05-21 23:10] LABS: BASO % 0.2 % (0.0-1.0); HEMATOCRIT 27.8 % (42.0-52.0); HEMOGLOBIN 8.9 g/dl (13.5-17.5); LYMPH # 0.3 10^3/uL (1.5-5.0); LYMPH % 6.5 % (24.0-44.0); MEAN CORPUSCULAR HEMOGLOBIN 28.3 pg (27.0-33.0); MEAN CORPUSCULAR VOLUME 88.5 fl (80.0-96.0); MONO # 0.3 10^3/uL (0.0-0.8); MONO % 6.5 % (2.0-8.0); NEUTROPHILS # 4.4 10^3/uL (1.5-8.5); NEUTROPHILS % 86.6 % (36.0-66.0); PLATELET COUNT, AUTOMATED 201 10^3/uL (150-450); RED BLOOD COUNT 3.14 10^6/uL (4.30-6.10); WHITE BLOOD COUNT 5.1 10^3/uL (4.0-10.0)
[2023-05-21 23:28] LABS: INR 1.09; PROTHROMBIN TIME 13.8 SECONDS (12.5-14.5)
[2023-05-21 23:29] LABS: PARTIAL THROMBOPLASTIN TIME 27.8 SECONDS (24.8-34.2)
[2023-05-21 23:54] LABS: PROCALCITONIN 0.28 ng/ml
[2023-05-22] VITALS (18 sets, daily range): BP systolic 124–190; BP diastolic 62–92; TEMP 98–98.8; O2SAT 78–96
[2023-05-22 00:07] LABS: ALBUMIN 2.4 G/DL (3.2-5.2); BILIRUBIN,DIRECT 0.1 MG/DL (<0.4); BILIRUBIN,TOTAL 0.2 MG/DL (0.3-1.2); C REACTIVE PROTEIN QUANTITATIV 7.6 MG/DL (<1.0); CALCIUM LEVEL 7.8 MG/DL (8.3-10.6); CK-MB VALUE MASS 1.9 NG/ML (<3.6); CREATININE FOR GFR 1.74 MG/DL (0.70-1.30); GLOMERULAR FILTRATION RATE 40.2 (>35); MB/CK RELATIVE INDEX 1.39 (< OR =4); POTASSIUM SERUM 2.6 MMOL/L (3.5-5.1)
[2023-05-22 01:38] LABS: MAGNESIUM LEVEL 1.8 MG/DL (1.8-2.4)
[2023-05-22] MEDS: KCL 10MEQ/100ML SWI (KRUN) 10 MEQ in IV 1 EA IV ONE ×2 (01:39→02:45)
[2023-05-22] MEDS: POTASSIUM CHLORIDE 10% LIQ 20MEQ/15ML UDC PO ONE ×2 (01:40→09:47)
[2023-05-22] MEDS: NS 1,000 ML IV ONE (01:50)
[2023-05-22 02:26] LABS: CK-MB VALUE MASS 1.7 NG/ML (<3.6)
[2023-05-22 02:33] LABS: MB/CK RELATIVE INDEX 1.16 (< OR =4)
[2023-05-22] MEDS: IPRATROPIUM 0.5MG/ALBUTEROL 2.5MG INH SOL UD 3ML (DUONEB) NEB ONE ×3 (05:22→06:21)
[2023-05-22 05:25] LABS: ABG BASE EXCESS 6.8 (-2.0-2.0); ABG HCO3 31.4 MMOL/L (22.0-26.0); ABG PARTIAL PRESSURE CO2 45.7 mmHg (35.0-45.0); ABG PARTIAL PRESSURE O2 100.2 mmHg (75.0-100.0); ABG STANDARD HCO3 30.7 MMOL/L. (22.0-26.0); ABG TOTAL CO2 32.8 MMOL/L (23.0-31.0); ABG pH (ARTERIAL) 7.455 UNITS (7.350-7.450)
[2023-05-22] MEDS: dexAMETHasone 20MG/5ML VIAL IV ONE (05:28)
[2023-05-22 08:00] LABS: HEMATOCRIT 27.1 % (42.0-52.0); HEMOGLOBIN 8.7 g/dl (13.5-17.5)
[2023-05-22] MEDS: cefTRIAXone SOD 1 GM in D5W MINI-BAG PLUS 50 ML IV SCH (08:01)
[2023-05-22 08:24] LABS: PERCENT SATURATION 11.1 % (19.7-50.0)
[2023-05-22 08:26] LABS: FERRITIN 203.9 NG/ML (10.5-307.3)
[2023-05-22 08:35] LABS: CALCIUM LEVEL 7.3 MG/DL (8.3-10.6); CREATININE FOR GFR 1.61 MG/DL (0.70-1.30); POTASSIUM SERUM 2.9 MMOL/L (3.5-5.1)
[2023-05-22] MEDS ORDERED: TERA1CAP3 PO (08:37)
[2023-05-22] MEDS ORDERED: ASPI81TA26 PO (08:37)
[2023-05-22] MEDS ORDERED: ROSU20TA61 PO (08:37)
[2023-05-22] MEDS ORDERED: FLON1SPR NARES (08:48)
[2023-05-22] MEDS ORDERED: PAXI20TA30 PO (08:48)
[2023-05-22] MEDS ORDERED: MECL-136 PO (08:48)
[2023-05-22] MEDS ORDERED: TREL1AER INH (08:48)
[2023-05-22] MEDS ORDERED: ALBU2.5V10 INH (08:48)
[2023-05-22] MEDS ORDERED: PANT20TA6 PO (08:48)
[2023-05-22] MEDS ORDERED: D-40TAB2 PO (08:48)
[2023-05-22] MEDS ORDERED: BUDE0.5S6 INH (08:48)
[2023-05-22] MEDS ORDERED: GABA-282 PO (08:48)
[2023-05-22] MEDS ORDERED: HOME MED LIST COMPLETE! XX SCH ×2 (08:50→15:15)
[2023-05-22 08:59] LABS: FOLATE 8.59 NG/ML (>5.4)
[2023-05-22] MEDS: IPRATROPIUM 0.5MG/ALBUTEROL 2.5MG INH SOL UD 3ML (DUONEB) INH SCH (09:10)
[2023-05-22] MEDS: DOXYCYCLINE HYCLATE 100MG TABLET PO SCH (09:47)
[2023-05-22] MEDS: NS 500 ML IV ONE (09:47)
[2023-05-22] MEDS: HEPARIN SOD (PORCINE) 5000UNITS/ML 1ML VIAL/SYRINGE SC SCH (09:47)
[2023-05-22] MEDS: NS 1,000 ML IV SCH (10:42)
[2023-05-22] MEDS: KCL 10MEQ/100ML SWI (KRUN) 10 MEQ in IV 1 EA IV SCH (10:42)
[2023-05-22] MEDS: REMDESIVIR 200 MG in NS 250 ML IV ONE (12:36)
[2023-05-22 14:54] LABS: HEMATOCRIT 27.6 % (42.0-52.0); HEMOGLOBIN 8.8 g/dl (13.5-17.5)
[2023-05-22 15:36] LABS: CALCIUM LEVEL 7.5 MG/DL (8.3-10.6); CREATININE FOR GFR 1.44 MG/DL (0.70-1.30); POTASSIUM SERUM 3.8 MMOL/L (3.5-5.1)
[2023-05-22] MEDS: BUDESONIDE 180MCG INHALER (PULMICORT FLEXHALER) INH SCH (15:58)
[2023-05-22] MEDS: ACETAMINOPHEN TAB 650MG DOSE (2X325MG) PO PRN (17:02)
[2023-05-22 19:38] LABS: ABG BASE EXCESS 6.7 (-2.0-2.0); ABG HCO3 32.3 MMOL/L (22.0-26.0); ABG O2 SATURATION 99.2 % (95.0-99.0); ABG PARTIAL PRESSURE O2 142.7 mmHg (75.0-100.0); ABG STANDARD HCO3 30.6 MMOL/L. (22.0-26.0); ABG TOTAL CO2 33.9 MMOL/L (23.0-31.0); ABG pH (ARTERIAL) 7.411 UNITS (7.350-7.450)
[2023-05-22] MEDS: ROSUVASTATIN 10 MG TAB (CRESTOR) PO SCH (21:00)
[2023-05-22] MEDS: TERAZOSIN 1 MG CAP PO SCH (21:00)
[2023-05-22] MEDS: PANTOPRAZOLE 20 MG TAB PO SCH (21:00)
[2023-05-22] MEDS: GABAPENTIN 300 MG CAP PO SCH (21:00)
[2023-05-22] MEDS: FUROSEMIDE 20MG/2ML VIAL IV ONE (21:30)
[2023-05-22] MEDS: LORazepam 2 MG/ML 1ML VIAL IV STA ×2 (21:30→22:50)
[2023-05-22 22:59] LABS: HEMATOCRIT 32.3 % (42.0-52.0); HEMOGLOBIN 10.2 g/dl (13.5-17.5)
[2023-05-22 23:41] LABS: ABG BASE EXCESS 0.2 (-2.0-2.0); ABG HCO3 29.3 MMOL/L (22.0-26.0); ABG PARTIAL PRESSURE O2 71.9 mmHg (75.0-100.0); ABG STANDARD HCO3 24.5 MMOL/L. (22.0-26.0); ABG TOTAL CO2 31.5 MMOL/L (23.0-31.0)
[2023-05-22 23:44] LABS: ABG pH (ARTERIAL) 7.215 UNITS (7.350-7.450)
[2023-05-23] VITALS (78 sets, daily range): BP systolic 69–127; BP diastolic 49–73; TEMP 98.9–99.3; O2SAT 70–100
[2023-05-23 02:01] LABS: VENOUS BASE EXCESS 5.8 (-2.0-2.0); VENOUS HCO3 32.9 MMOL/L (23.0-27.0); VENOUS O2 SATURATION 98.8 % (60.0-80.0); VENOUS PARTIAL PRESSURE CO2 61.9 mmHg (38.0-50.0); VENOUS PARTIAL PRESSURE O2 150.7 mmHg (30.0-50.0); VENOUS PH 7.344 UNITS (7.330-7.430); VENOUS STANDARD HCO3 29.8 MMOL/L; VENOUS TOTAL CO2 34.8 MMOL/L (24.0-28.0)
[2023-05-23] MEDS: SODIUM CHLORIDE 0.9% 250ML IV ONE ×3 (05:19→06:43)
[2023-05-23 05:46] LABS: VENOUS BASE EXCESS 5.5 (-2.0-2.0); VENOUS HCO3 32.8 MMOL/L (23.0-27.0); VENOUS O2 SATURATION 99.1 % (60.0-80.0); VENOUS PARTIAL PRESSURE CO2 62.6 mmHg (38.0-50.0); VENOUS PARTIAL PRESSURE O2 162.2 mmHg (30.0-50.0); VENOUS PH 7.337 UNITS (7.330-7.430); VENOUS STANDARD HCO3 29.5 MMOL/L; VENOUS TOTAL CO2 34.7 MMOL/L (24.0-28.0)
[2023-05-23 05:53] LABS: HEMATOCRIT 31.4 % (42.0-52.0)
[2023-05-23] MEDS: OLANZapine INTRAMUSCULAR 10MG VIAL IM ONE (06:20)
[2023-05-23] MEDS: NOREPINEPHRINE 4MG IN D5 250ML 4 MG in IV 1 EA IV SCH (07:45)
[2023-05-23] MEDS: CLOPIDOGREL 75 MG TAB PO SCH (09:00)
[2023-05-23] MEDS: ASPIRIN 81MG ENTERIC TABLET PO SCH (09:00)
[2023-05-23] MEDS: FUROSEMIDE 20MG/2ML VIAL IV ONE (09:00)
[2023-05-23] MEDS: PARoxetine 20MG TABLET PO SCH (09:00)
[2023-05-23] MEDS: REMDESIVIR 100 MG in NS 250 ML IV SCH (09:33)
[2023-05-23] MEDS ORDERED: dexmedeTOMIDine (4MCG/ML)200MCG/50ML BTL (PRECEDEX) As Ordered ONE (09:42)
[2023-05-23] MEDS: dexmedeTOMidine 200 MCG in IV 1 EA IV SCH (09:54)
[2023-05-23] MEDS: FUROSEMIDE injection 250 MG in D5W 225 ML IV SCH (10:13)
[2023-05-23] MEDS: LORazepam 2 MG/ML 1ML VIAL IV STA ×2 (10:14→10:34)
[2023-05-23 11:55] LABS: VENOUS BASE EXCESS 6.2 (-2.0-2.0); VENOUS HCO3 32.7 MMOL/L (23.0-27.0); VENOUS O2 SATURATION 99.4 % (60.0-80.0); VENOUS PARTIAL PRESSURE CO2 57.2 mmHg (38.0-50.0); VENOUS PARTIAL PRESSURE O2 208.2 mmHg (30.0-50.0); VENOUS PH 7.375 UNITS (7.330-7.430); VENOUS STANDARD HCO3 30.2 MMOL/L; VENOUS TOTAL CO2 34.5 MMOL/L (24.0-28.0)
[2023-05-23 15:10] LABS: HEMATOCRIT 31.9 % (42.0-52.0)
[2023-05-23] MEDS: VASOPRESSIN INJ 20 UNITS in NS 499 ML IV SCH (15:20)
[2023-05-23 16:30] LABS: VENOUS BASE EXCESS 8.8 (-2.0-2.0); VENOUS HCO3 36.1 MMOL/L (23.0-27.0); VENOUS O2 SATURATION 95.6 % (60.0-80.0); VENOUS PARTIAL PRESSURE CO2 65.4 mmHg (38.0-50.0); VENOUS STANDARD HCO3 32.5 MMOL/L; VENOUS TOTAL CO2 38.1 MMOL/L (24.0-28.0)
[2023-05-23 16:35] LABS: HEMATOCRIT 31.5 % (42.0-52.0); HEMOGLOBIN 9.9 g/dl (13.5-17.5); MEAN CORPUSCULAR HEMOGLOBIN 28.4 pg (27.0-33.0); MEAN CORPUSCULAR HGB CONC 31.4 g/dl (32.0-36.5); MEAN CORPUSCULAR VOLUME 90.3 fl (80.0-96.0); PLATELET COUNT, AUTOMATED 276 10^3/uL (150-450); RED BLOOD COUNT 3.49 10^6/uL (4.30-6.10); WHITE BLOOD COUNT 19.6 10^3/uL (4.0-10.0)
[2023-05-23 17:11] LABS: CALCIUM LEVEL 6.9 MG/DL (8.3-10.6); CREATININE FOR GFR 1.98 MG/DL (0.70-1.30); GLOMERULAR FILTRATION RATE 34.6 (>35); MAGNESIUM LEVEL 1.5 MG/DL (1.8-2.4); PHOSPHORUS LEVEL 5.5 MG/DL (2.4-5.1); POTASSIUM SERUM 3.3 MMOL/L (3.5-5.1)
[2023-05-23] MEDS: MAG SULF 1GM/100ML (MAG RUN) 1 GM in IV 1 EA IV ONE (17:51)
[2023-05-23] MEDS: LORazepam 2 MG/ML 1ML VIAL IV PRN (18:23)
[2023-05-23] MEDS: KCL 20MEQ IN 100ML SWI (KRUN) 20 MEQ in IV 1 EA IV SCH (20:25)
[2023-05-24] VITALS (52 sets, daily range): BP systolic 86–137; BP diastolic 53–75; TEMP 98.8–99.5; O2SAT 82–100
[2023-05-24] MEDS: MORPHINE 2 MG/ML 1ML VIAL IV ONE (01:38)
[2023-05-24 04:30] LABS: VENOUS BASE EXCESS 10.9 (-2.0-2.0); VENOUS HCO3 38.1 MMOL/L (23.0-27.0); VENOUS O2 SATURATION 66.4 % (60.0-80.0); VENOUS PARTIAL PRESSURE CO2 66.1 mmHg (38.0-50.0); VENOUS PARTIAL PRESSURE O2 35.6 mmHg (30.0-50.0); VENOUS PH 7.379 UNITS (7.330-7.430); VENOUS TOTAL CO2 40.2 MMOL/L (24.0-28.0)
[2023-05-24 04:37] LABS: BASO % 0.1 % (0.0-1.0); HEMOGLOBIN 9.6 g/dl (13.5-17.5); LYMPH # 0.7 10^3/uL (1.5-5.0); LYMPH % 4.4 % (24.0-44.0); MEAN CORPUSCULAR HEMOGLOBIN 28.5 pg (27.0-33.0); MONO # 0.8 10^3/uL (0.0-0.8); NEUTROPHILS # 15.1 10^3/uL (1.5-8.5); PLATELET COUNT, AUTOMATED 265 10^3/uL (150-450); RED BLOOD COUNT 3.37 10^6/uL (4.30-6.10); WHITE BLOOD COUNT 16.8 10^3/uL (4.0-10.0)
[2023-05-24 05:03] LABS: BILIRUBIN,TOTAL 0.3 MG/DL (0.3-1.2); CALCIUM LEVEL 6.9 MG/DL (8.3-10.6); CREATININE FOR GFR 2.27 MG/DL (0.70-1.30); GLOMERULAR FILTRATION RATE 29.6 (>35); MAGNESIUM LEVEL 1.9 MG/DL (1.8-2.4); PHOSPHORUS LEVEL 4.3 MG/DL (2.4-5.1); POTASSIUM SERUM 3.8 MMOL/L (3.5-5.1); TOTAL PROTEIN 5.4 G/DL (5.7-8.2)
[2023-05-24] MEDS: LORazepam 2 MG/ML 1ML VIAL IV STA (11:40)
[2023-05-24] MEDS: BARICITINIB 2MG TABLET (OLUMIANT) FOR EUA PO SCH (12:55)
[2023-05-24] MEDS ORDERED: SCOPOLAMINE 1MG TRANSDERMAL PATCH TOP PRN (13:25)
[2023-05-24] MEDS ORDERED: ONDANSETRON 4MG 2ML VIAL IV PRN (13:25)
[2023-05-24] MEDS: OLANZapine INTRAMUSCULAR 10MG VIAL IM ONE (13:50)
[2023-05-24] MEDS: MORPHINE 2 MG/ML 1ML VIAL IV PRN ×2 (14:03→16:55)
[2023-05-24] MEDS: LORazepam 2 MG/ML 1ML VIAL IV PRN ×3 (14:53→22:00)
[2023-05-24] MEDS: MORPHINE 2 MG/ML 1ML VIAL IV STA (16:17)
== END 2023-05-25 12:20 | disposition expired | DRG 871 ==
LOC: M ED 22:04 → M ED INP 05-22 06:21 → ENRESERV 05-22 07:56 → M PCU 05-22 08:37 → M ICU 05-22 12:49
PROVIDERS: ADMIT Family Medicine; ATTEND Student in an Organized Health Care Education/Training Program
DX: A41.9 Sepsis, unspecified organism (principal); J96.21 Acute and chronic respiratory failure with hypoxia; U07.1 COVID-19; G93.41 Metabolic encephalopathy; R65.21 Severe sepsis with septic shock; J96.22 Acute and chronic respiratory failure with hypercapnia; J12.82 Pneumonia due to coronavirus disease 2019; N17.9 Acute kidney failure, unspecified; I50.32 Chronic diastolic (congestive) heart failure; E87.29 Other acidosis; I24.89 Other forms of acute ischemic heart disease; J44.0 Chronic obstructive pulmonary disease with (acute) lower respiratory infection; I25.10 Atherosclerotic heart disease of native coronary artery without angina pectoris; K21.9 Gastro-esophageal reflux disease without esophagitis; R29.6 Repeated falls; E87.6 Hypokalemia; Z51.5 Encounter for palliative care; D50.9 Iron deficiency anemia, unspecified; N40.0 Benign prostatic hyperplasia without lower urinary tract symptoms; E53.8 Deficiency of other specified B group vitamins; G62.9 Polyneuropathy, unspecified; Z95.2 Presence of prosthetic heart valve; Z87.891 Personal history of nicotine dependence; Z88.0 Allergy status to penicillin; Z88.8 Allergy status to other drugs, medicaments and biological substances; Z88.5 Allergy status to narcotic agent; Z79.899 Other long term (current) drug therapy; Z79.82 Long term (current) use of aspirin; Z66 Do not resuscitate; J67.0 Farmer's lung